=== PATIENT | female | born 1955 | race Caucasian/White ===

== ENCOUNTER 2024-11-06 05:58 | Day surgery (SDC) | payer MEDICARE, OTHER, SELFPAY ==
[2024-11-06] VITALS (22 sets, daily range): BP systolic 119–160; BP diastolic 56–82; BMI 23.6
--- NOTE | 2024-11-06 07:10 | HP.FOC2 ---
Documented by User: FERMIN Goldsmith 11/05/24 13:40
Focused History & Physical
Chief Complaint
HPI:
PCP: Lidia Pedraza PA-C
CDY: Cruz Rolon MD
Chief Complaint: Chest pain, abnormal stress test
HPI / Indication for Planned Procedure:
69 y/o, elevated calcium score, seen in [facility] ER 09/12/24 for chest discomfort, testing unremarkable and d/c home with cardiology followup.
Exercise NST completed, with abnormal EKG with inferolateral upsloping ST segments during exercise, which did not meet criteria for ischemia, but developed downsloping ST depression in recovery that did meet criteria. She endorses chest pain at rest
and on exertion. Referred for [facility] today.
Relevant Past Medical History: Hypertension and Other (Hyperlipidemia, impaired fasting glucose, arthritis)
Relevant Social History: Negative (non smoker) and ETOH (social)
Relevant Family History: Positive for (cancer)
Relevant Past Surgical History: Positive for (bunionectomy, left foot surgery (2019), section)
Review of Systems
Review of Pertinent Systems: All Systems Negative
Medication
See Medication form for detailed medications: Yes
Medication List (including Herbals & OTC):
ascorbic acid (vitamin C) 500 mg PO DAILY
aspirin 81 mg PO DAILY
cholecalciferol (vitamin D3) 25 mcg PO DAILY
cyanocobalamin (vitamin B-12) 1,000 mcg PO DAILY
fluticasone propionate 50 mcg/actuation Use 1 spray(s) in each nostril once daily
garlic 100 mg PO DAILY
lisinopril-hydrochlorothiazide 10-12.5 mg 1 tab PO DAILY
meloxicam 15 mg PO DAILY PRN
montelukast 10 mg PO DAILY PRN
multivitamin 1 tab PO DAILY
omega 2-knl-rbf-fish oil 100-160-1,000 mg 1 cap PO DAILY
psyllium husk (Daily Fiber) 0.52 grams PO DAILY
pyridoxine (vitamin B6) (Vitamin B-6) 50 mg PO DAILY
rosuvastatin 40 mg PO DAILY
vitamin B complex 1 tab PO DAILY
Medications Reviewed: Yes
Allergies and Reactions
Patient has Allergies: No
Diagnosis / Assessment
Elevated calcium score
Exertional chest pain
Abnormal Exercise stress test
HTN
HLD
impaired fasting glucose
Plan / Procedure
LHC today
asa today if not taken
plan pending cath results
Anesthesia/Sedation to be done by Anesthesia Provider: No

Documented by User: FERMIN Sanz 11/06/24 07:25
Focused History & Physical
Pertinent Physical Exam
All Other Systems: Negative
Head/Neck: Normal
Lungs: Normal
Heart: Normal
Abdomen: Normal
Extremities: Normal
Neurological: Normal
[2024-11-06 08:06] LABS: ACT-LR - POC 351 Seconds (116-155)
[2024-11-06] MEDS: NSS 1000 IV (10:54)
--- NOTE | 2024-11-06 11:01 | ITS.CL.ANGIO ---
Fitting Room Operator - Angioplasty
Angioplasty
Procedure Report:
LEFT HEART CATHETERIZATION
Date of Procedure: November 06, 2024
Procedures performed:
1: Coronary angiography
2: Left ventricular hemodynamic assessment
3: Physiologic lesion assessment of the left anterior descending artery
4: Percutaneous coronary intervention of the LAD with angioplasty followed by drug-eluting stent placement using intravascular ultrasound guidance (2.75 x 30 mm Denilson drug-eluting stent)
Primary Care Physician: Lidia Pedraza PA-C
Primary Brim Raiser: Myself
INDICATION: The patient is a 69-year-old woman with a past medical history of hypertension, hyperlipidemia, and high calcium score who has a history of intermittent exertional chest tightness and chest tightness when she is emotionally stressed.
She was first evaluated for this in 2021 with a stress echocardiogram which showed good exercise tolerance, no symptoms, and normal LV systolic function at rest and peak exercise. In light of more recent symptoms she underwent a stress EKG test on
October 28 where she walked 10 minutes and had 5 out of 10 chest heaviness associated with EKG changes in recovery that may be consistent with ischemia. She also had a hypertensive response to exercise. In light of ongoing chest symptoms as recently
as yesterday she is referred for cardiac catheterization.
ACCESS: The patient was prepped and draped in usual sterile fashion. A 6 Vietnamese sheath was placed in the right radial artery using the Seldinger over the wire technique.
HEMODYNAMIC FINDINGS (mmHg):
LV(s/d,EDP): 117/8, 14
Ao(s/d,m): 117/63, 87
ANGIOGRAPHIC FINDINGS:
Single-plane Left Ventriculography in HA Projection: Not done.
Coronary Angiography:
Dominance: Right
Left Main: Normal
Left Anterior Descending: The left anterior descending artery is a small to medium caliber vessel that is moderately calcified throughout the proximal and mid course. There is a long area of diffuse 30 to 40% proximal disease with at worst a focal
60 to 70% smooth stenosis. The mid vessel has mild luminal irregularities and is tortuous. The distal vessel is angiographically normal and wraps around the apex to feed a significant portion of the distal inferior wall.
Ramus intermedius: Medium caliber ramus intermedius branch that is widely patent with only mild luminal irregularities. There are 2 major distal branches which have normal flow.
Left Circumflex: The left circumflex is a large nondominant system that gives rise to a large trifurcating obtuse marginal branch. These vessels are widely patent with diffuse calcification but no focal obstructive disease. All distal branches
have normal flow.
Right Coronary: The right coronary artery is a large-caliber dominant vessel that is moderate to severely calcified in the proximal and mid portions with only 20 to 30% mid stenosis and mild luminal irregularity. The posterior descending artery is
a relatively small caliber vessel that is widely patent. The posterior left ventricular branch is a very large caliber vessel that is also widely patent and angiographically normal with normal flow.
Physiologic lesion assessment the left anterior descending artery: In light of the borderline angiographic appearance of the proximal LAD disease, I elected to perform physiologic lesion assessment. The patient was given unfractionated heparin.
The patient was pretreated with aspirin. A 6 Vietnamese XB 3.0 guiding catheter was used to engage the left main. A pressure wire was advanced with the transducer positioned in the more normal mid to distal LAD. The IFR was serially measured at 0.86
consistent with flow-limiting disease. Careful pullback showed most of the gradient was within the long territory of proximal disease. In light of her symptoms and these findings I elected to proceed with PCI.
Percutaneous Coronary Intervention (PCI): Unfractionated heparin and aspirin were given prior. A loading dose of clopidogrel 600 mg was given on the table at the end of the procedure. Anticipating difficulty with calcification and tortuosity, I
chose to use a BMW as the workhorse wire. Initial attempts to pass the BMW wire were not readily successful so a Whisper wire was advanced into the distal LAD across the lesion. This facilitated delivery of the BMW wire and a 2.0 x 20 mm balloon
was advanced on the BMW wire with some difficulty through the calcified tortuous proximal segment and predilation of the long tapered disease was performed. Given the difficulty with this predilation, I used a 6 Vietnamese Guideliner to help facilitate
delivery of a 2.75 x 30 mm Denilson drug-eluting stent. This was deployed at 12 yunier. Follow-up angiography revealed excellent sizing. The stent was postdilated with a 2.75 mm diameter noncompliant balloon inflated to 16 yunier. This was done in distal
to proximal fashion with care taken to stay within the stented margins. Follow-up angiography showed evidence of wire bias artifact distal to the deployed stent. The wire was pulled back and this resolved. Intravascular ultrasound imaging was
then performed which revealed good stent opposition and sizing both proximally and distally.
FINAL RESULT: 0% in-stent residual stenosis with an outstanding angiographic result and ED-3 flow in all vessels.
Fluoroscopy Time (min): 15.1
Radiation Dose (mGy): 440
DAP (Gy.cm2): 26
Closure device: None. A TR band was applied for hemostasis at the right wrist.
Complications: None.
ASSESSMENT:
1: Successful PCI of the LAD with placement of a drug-eluting stent guided by physiologic lesion assessment and intravascular ultrasound as described above.
2: Normal left ventricular filling pressures.
CONCLUSIONS and RECOMMENDATIONS:
1: Routine post drug-eluting stent medical therapy and monitoring. Dual antiplatelet therapy uninterrupted with aspirin and clopidogrel 75 mg daily for a year and then aspirin 81 mg daily without interruption indefinitely.
2: Medical therapy for coronary artery disease, hypertension and hyperlipidemia.
Enrique Rolon M.D.
Copy to: November 06, 2024
--- NOTE | 2024-11-06 18:43 | PTCARENOTE ---
Received pt from slab grinder w/ right radial site dressing clean and intact. VSS. Pt c/o a midsternal 'nagging'. She is unable to rate the 'discomfort'. She states that this seems to be the discomfort that brought her to the slab grinder. Will monitor.
[2024-11-06] MEDS: CRESTOR 40 MG PO (22:40)
--- NOTE | 2024-11-07 00:42 | PTCARENOTE ---
Assumed care of patient at change of shift. Patient AAOx3, VSS, and tele monitor shows SR. Denies any chest discomfort. Right radial dressing C/D/I w/ positive pulse. Patient educated on activity restrictions, and verbalized understanding. Patient
aware of POC, call cassidy in reach.
[2024-11-07 03:30] VITALS: BP 144/98
[2024-11-07 03:33] VITALS: BP 156/77
[2024-11-07 04:15] LABS: Hematocrit 39.2 % (37.0-47.0); Hemoglobin 13.6 g/dL (12.0-16.0); Mean Corp Hgb Conc. 34.7 g/dL (33.0-37.0); Mean Corpuscular Hgb 31.3 pg (27.0-31.0); Mean Corpuscular Volume 90.1 fL (81.0-99.0); Mean Platelet Volume 9.6 fL (7.4-10.4); Platelet Count 251 10^3/uL (130-400); Red Blood Cell Count 4.35 10^6/uL (4.20-5.40); Red Cell Dist. Width 12.1 % (11.5-14.5)
[2024-11-07 04:43] LABS: Blood Urea Nitrogen 18 mg/dl (7-17); Calcium 9.3 mg/dl (8.4-10.2); Carbon Dioxide 25 mmol/L (22-30); Chloride 105 mmol/L (98-107); Estimated Creatinine Clearance 63 ml/min; Glucose 111 mg/dl (70-99); HDL Cholesterol 70 mg/dl; LDL Cholesterol, Calculated 62 mg/dl; Potassium 4.4 mmol/L (3.5-5.1); Sodium 139 mmol/L (135-145); Total Cholesterol 153 mg/dl (50-199); Triglyceride 109 mg/dl (10-149); Very Low Density Lipoprotein 21 mg/dl (0-30); eGFR > 60.00
--- NOTE | 2024-11-07 07:42 | W.PN.CARDCBS ---
Addendum entered and electronically signed by Jamil Manrique MD 11/07/24 14:34:
I saw and examined the patient.
The Yeast Maker's note was reviewed and I agree with the note.
Comment: Briefly, 69-year-old woman who has had intermittent exertional chest tightness and underwent coronary angiography yesterday 11/06/24 and found to have proximal LAD stenosis treated with drug-eluting stent by Dr. Rolon of [facility]
At the time of my evaluation this morning the patient had no cardiac complaints including no chest discomfort
Physical exam was unremarkable and right upper extremity was neurovascularly intact
Maintaining sinus rhythm on telemetry
Agree with discharging on aspirin/Plavix, high intensity statin, amlodipine as antianginal
Recommended cardiac rehab
Stable for discharge from my perspective with plan to follow-up with her primary security systems technician at [facility]
Original Note:
Today's Communication / Plan
-
post PCI, stable for d/c home
Impression / Plan
-
Primary Care Physician: Lidia Pedraza PA-C
Primary Inspector Government Property: Cruz Rolon MD
69-year-old woman with a past medical history of hypertension, hyperlipidemia, and high calcium score who has a history of intermittent exertional chest tightness and chest tightness when she is emotionally stressed. She was first evaluated for
this in 2021 with a stress echocardiogram which showed good exercise tolerance, no symptoms, and normal LV systolic function at rest and peak exercise. In light of more recent symptoms she underwent a stress EKG test on October 28 where she walked 10
minutes and had 5 out of 10 chest heaviness associated with EKG changes in recovery that may be consistent with ischemia. She also had a hypertensive response to exercise. In light of ongoing chest symptoms as recently as yesterday she is referred
for cardiac catheterization.
Impression:
Chest pain with abnormal stress test
CAD post PCI LAD x 1 TROY 11/06/24
HTN
HLD
Arthritis
Plan:
post PCI, no further chest pain
rad site stable
tele SR
DAPT ASA/Plavix
LDL 62 continue rosuvastatin
d/c use of meloxicam with DAPT/CAD
continue amlodipine and lisinopril-HCTZ for HTN
Cardiac rehab c/s
f/u Dr. Rolon in 2-4 weeks
home today
11/06/24 LHC:
1: Coronary angiography
2: Left ventricular hemodynamic assessment
3: Physiologic lesion assessment of the left anterior descending artery
4: Percutaneous coronary intervention of the LAD with angioplasty followed by drug-eluting stent placement using intravascular ultrasound guidance (2.75 x 30 mm Denilson drug-eluting stent)
Progress Note - Inspector Government Property
Subjective
Date of Service: November 07, 2024
denies cp, sob
Objective
Labs:
11/07/24 03:41
11/07/24 03:41
Labs
Hgb 13.6 g/dL (12.0-16.0) 11/07/24 03:41
Hct 39.2 % (37.0-47.0) 11/07/24 03:41
Plt Count 251 10^3/uL (130-400) 11/07/24 03:41
Sodium 139 mmol/L (135-145) 11/07/24 03:41
Potassium 4.4 mmol/L (3.5-5.1) 11/07/24 03:41
BUN 18 mg/dl (7-17) H 11/07/24 03:41
Creatinine 0.5 mg/dL (0.6-1.0) L 11/07/24 03:41
Glucose 111 mg/dl (70-99) H 11/07/24 03:41
Vital Signs and I&O:
Vital Signs
Temp Pulse Resp BP Pulse Ox
98.8 F 56 18 156/77 96
11/07/24 03:30 11/07/24 05:00 11/07/24 03:30 11/07/24 03:33 11/07/24 03:30
Vital Signs
Temp Pulse Resp BP Pulse Ox
98.8 F 56 18 156/77 96
11/07/24 03:30 11/07/24 05:00 11/07/24 03:30 11/07/24 03:33 11/07/24 03:30
Intake & Output
11/05/24 11/06/24 11/07/24 11/08/24
06:59 06:59 06:59 06:59
Intake Total 480 / 480
Balance 480 / 480
Physical Exam
Physical Exam
NAD< AOX3
S1, s2, RRR
CTAB, non labord, no wheeze
SNTND Bsx4
R rad site c/d/i, good pulse, mild ecchymosis
[2024-11-07] MEDS: ZESTRIL 10 MG PO (07:54)
[2024-11-07] MEDS: ORETIC 12.5 MG PO (07:54)
[2024-11-07] MEDS: NORVASC 2.5 MG PO (07:55)
[2024-11-07] MEDS: PLAVIX 75 MG PO (07:55)
[2024-11-07] MEDS: LOW STRENGTH ASPIRIN 81 MG PO (07:55)
[2024-11-07 07:56] VITALS: BP 138/70
[2024-11-07 08:38] LABS: ACT-LR - POC > 397 Seconds (116-155)
--- NOTE | 2024-11-07 09:20 | CM ---
Reviewed chart. Met with Mrs. Jackson to review discharge plans. She states she is feeling well and maybe able to go home soon. She states prior to admission she resides with her spouse a=in a three story home without any steps to enter. She
states she has to go up a full flight of steps to get to bedroom/full bathroom. She has a powder room on the first floor. She states prior to admission she was independent with ambulation and adls. She states she does not have any DME in the home.
she states she has a prescription plan and uses [facility]. The discharge plan is to return home with her spouse when medically stable.
--- NOTE | 2024-11-07 09:52 | PTCARENOTE ---
Pt received this am with no c/o of any chest pain or sob. Ambulating in the wang independently. Right rad cath site dressing dry and intact. Mild ecchymosis noted, no hematoma.
--- NOTE | 2024-11-07 11:10 | PTCARENOTE ---
Pt discharged to home with her . Discharge instructions given and reviewed with good understanding and all questions answered.
--- NOTE | 2024-11-07 14:27 | W.DS.TRANS ---
DC Summary - Top Collar Maker
-
Discharge Instructions:
Discharge Diagnosis/Procedures Angioplasty with stent to LAD
Diet Low Cholesterol
Driving Restrictions No driving for 24 hours
Other Services Cardiac Rehab
Instructions:
Stand-Alone Forms: DC Instructions- Cath/EP Lab
Changes to Home Medications: Yes
Discharge Medications:
DC Medications w/original date entered in [employer]
amlodipine 2.5 mg tablet 2.5 mg PO DAILY 11/06/24
ascorbic acid (vitamin C) 1,000 mg tablet 1 g PO DAILY 11/06/24
aspirin 81 mg tablet 81 mg PO DAILY 11/06/24
calcium 600 mg (as carbonate)-vitamin D3 10 mcg (400 unit) tablet (Calcium 600 + D(3)) 1 tab PO DAILY 11/06/24
garlic 1,000 mg capsule 1,000 mg PO DAILY 11/06/24
glucosamine sulf dipot chlr,msm,chond 550 mg-C 30 mg-tyler 1 mg capsule (Glucosamine Chondroitin) 1 cap PO DAILY 11/06/24
lisinopril 10 mg-hydrochlorothiazide 12.5 mg tablet 1 tab PO DAILY 11/06/24
mecobalamin (vitamin B12) 1,000 mcg disintegrating tablet,sublingual 1,000 mcg PO DAILY 11/06/24
multivit with minerals-iron 18 mg-folic ac 400 mcg-vit K 25 mcg tablet (Adults Multivitamin) 1 tab PO DAILY 11/06/24
omega-3 fatty acids 1,250 mg PO DAILY 11/06/24
pyridoxine (vitamin B6) 100 mg tablet 100 mg PO DAILY 11/06/24
rosuvastatin 40 mg tablet 40 mg PO DAILY 11/06/24
clopidogrel 75 mg tablet 75 mg PO DAILY #90 tabs 11/07/24
Home Medication Changes
plavix
Pending Results: No
== END 2024-11-07 11:18 | disposition home or self-care (01) ==
LOC: CATH 05:58
PROVIDERS: Nurse Practitioner Adult Health; ATTENDING PHYSICIAN Internal Medicine Interventional Cardiology; PRIMARYCARE PHYSICIAN Physician Assistant
DX: I25.10 Atherosclerotic heart disease of native coronary artery without angina pectoris (principal); R07.9 Chest pain, unspecified; R94.39 Abnormal result of other cardiovascular function study; I10 Essential (primary) hypertension; E78.49 Other hyperlipidemia; R73.01 Impaired fasting glucose; Z79.82 Long term (current) use of aspirin
CPT/HCPCS: 93799; 92978; C1769 ×2; C1725; C1894; C1887; C1753; 80048; 80061; 85027; 85347; 93005; 93458; C1874; C9600; Q9967